=== PATIENT | female | born 1980 | race Caucasian/White ===

== ENCOUNTER → 2021-06-07 13:57 | Outpatient (CLI) | payer OTHER, SELFPAY ==
--- NOTE | 2021-06-07 13:57 | US_ITS ---
PROCEDURE: US TRANSVAGINAL CLINICAL INDICATION: pelvic pain COMPARISON: No exams were available for comparison FINDINGS: The uterus is retroverted. A 1.6 x 0.9 cm area heterogeneous echogenicity with 2 small cystic components noted along the anatomical anterior surface of the uterus consistent with a small fibroid UTERUS: 9cm x 6cmx 5cm with a combined endometrial thickness of 7.1mm LEFT OVARY: [id number] with a volume of 3.4ml. RIGHT OVARY: [id number] with a volume of 11.2ml. There are small bilateral ovarian follicles with a 2 cm follicular cyst of the right ovary. No cul-de-sac fluid apparent. IMPRESSION: Retroverted uterus with small uterine fibroid with some minimal internal cystic changes Dictated by: Elkin Chatterjee MD 06/07/2021 18:23 Elkin Chatterjee MD in [facility] 06/07/2021 18:23
--- NOTE | 2021-06-07 13:57 | US_ITS ---
PROCEDURE: US BREAST LT COMPLETE CLINICAL INDICATION: cyst of breast COMPARISON: No exams were available for comparison FINDINGS: There are no previous mammograms or ultrasounds available for comparison. At 1 o'clock there is a well-circumscribed 1 x 1 x 0.5 cm hypoechoic nodule possibly due to a complicated cyst or fibroadenoma wider than tall without calcification. At 3 o'clock there is a 1.6 x 1 by 1.4 cm slightly hypoechoic nodule with enhanced through transmission of sound well-circumscribed wider than tall and may represent a fibroadenoma. This corresponds to the palpable abnormality. No other significant anomalies evident. IMPRESSION: Palpable nodule 1 o'clock represents a 1.6 cm solid nodule which may represent a fibroadenoma. A hypoechoic nodules present at 1 o'clock and may be due to a complicated cyst. Recommend ultrasound-guided FNA of both lesions. Dictated by: Elkin Chatterjee MD 06/13/2021 14:15 Elkin Chatterjee MD in [facility] 06/13/2021 14:15
== END ==
PROVIDERS: PCP Nurse Practitioner; Visit Provider Obstetrics & Gynecology
DX: R10.2 Pelvic and perineal pain (principal); N60.09 Solitary cyst of unspecified breast
CPT/HCPCS: 76641; 76830

== ENCOUNTER → 2021-06-12 16:18 | Outpatient (CLI) | payer OTHER, SELFPAY ==
[2021-06-12 17:44] LABS: Free T4 (Free Thyroxine) 0.92 ng/dl (0.78-2.19)
[2021-06-12 18:36] LABS: Thyroid Stimulating Hormone 0.76 uIU/mL (0.465-4.68)
[2021-06-14 08:14] LABS: Thyroid Peroxidase Antibodies <8 IU/mL (0-34)
[2021-06-15 09:19] LABS: Thyroid Stimulating Immunoglob <0.10 IU/L (0.00-0.55)
[2021-06-15 18:16] LABS: Calcitonin <2.0 pg/mL (0.0-5.0)
== END ==
PROVIDERS: Visit Provider Otolaryngology
DX: E01.0 Iodine-deficiency related diffuse (endemic) goiter (principal); E04.1 Nontoxic single thyroid nodule
CPT/HCPCS: 36415; 82308; 84439; 84443; 84445; 86376

== ENCOUNTER → 2021-06-19 15:01 | Outpatient (CLI) | payer OTHER, SELFPAY ==
--- NOTE | 2021-06-19 15:01 | US_ITS ---
PROCEDURE: US THYROID CLINICAL INDICATION: enlarged thyroid COMPARISON: No exams were available for comparison FINDINGS: Right lobe: 4.51.4 x 2.1 cm. 1 x 0.6 cm hypoechoic nodule mid polar region well-circumscribed without calcifications wider than tall and may be partially cystic. 13 x 10 mm hypoechoic nodule lower pole which may be partially cystic without calcifications, wider than tall Left lobe: 4.5 x 1.2 x 2 cm. 14 x 8 by 9 mm hypoechoic nodule mid polar region. The margins are somewhat irregular wider than tall without calcifications TR level 4 less than 1.5 cm. 9 x 4 mm solid-appearing well-circumscribed mostly isoechoic nodule upper pole. Ill-defined 6 x 4 mm isoechoic nodule lower pole Isthmus: Unremarkable Additional findings: IMPRESSION: Mildly enlarged thyroid gland. Multiple nodules present as described above TR level 4 nodule on the left less than 1.5 cm. Recommend six-month sonographic follow-up. Dictated by: Elkin Chatterjee MD 06/20/2021 09:45 Elkin Chatterjee MD in [facility] 06/20/2021 09:45
== END ==
PROVIDERS: PCP Nurse Practitioner; Visit Provider Otolaryngology
DX: E01.0 Iodine-deficiency related diffuse (endemic) goiter (principal); E04.1 Nontoxic single thyroid nodule
CPT/HCPCS: 76536

== ENCOUNTER → 2021-06-21 09:36 | Outpatient (CLI) | payer OTHER, SELFPAY ==
--- NOTE | 2021-06-21 11:04 | US_ITS ---
PROCEDURE: FNA US GUIDED ADD LESION CLINICAL INDICATION: Breast nodules COMPARISON: US US BREAST LT COMPLETE from 06/07/2021 FINDINGS: There are 2 nodules within the left breast which were deemed to be suspicious on previous ultrasound. There is a nodule 1 o'clock and a nodule at 3 o'clock. Following obtaining informed consent and time-out procedure under aseptic conditions and local anesthesia with 1 percent buffered lidocaine, fine needle aspiration was performed with ultrasound guidance of the 1 o'clock nodule and then the 3 o'clock nodule. The patient tolerated the procedure well without evidence of immediate complication and left radiology suite in stable condition. Cytology left breast nodule at 1 o'clock: Negative for malignancy, compatible with fibroadenoma. Cytology left breast nodule at 3 o'clock: Negative for malignancy compatible with benign fibrocystic changes. This is discordant with the radiographic findings which appear to represent a fibroadenoma. Therefore, suggest repeat FNA with possible core biopsy with pathologist present to confirm cytology. IMPRESSION: 1 o'clock nodule negative for malignancy compatible with fibroadenoma. 3 o'clock nodule demonstrate discordant findings. Suggest repeat FNA with possible core biopsy with pathologist present to confirm cytology. Dictated by: Elkin Chatterjee MD 06/26/2021 07:42 Elkin Chatterjee MD in [facility] 06/26/2021 07:42
== END ==
PROVIDERS: PCP Nurse Practitioner; Visit Provider Obstetrics & Gynecology
DX: N63.20 Unspecified lump in the left breast, unspecified quadrant (principal)
CPT/HCPCS: 10005; 10006

== ENCOUNTER → 2021-06-28 13:25 | Outpatient (CLI) | payer OTHER, SELFPAY ==
--- NOTE | 2021-06-28 | US_ITS ---
PROCEDURE: MM DIG MAMM BI DX W/CAD Digital Breast Tomosynthesis Included US US BREAST RT COMPLETE CLINICAL INDICATION: abn us Breast nodules COMPARISON: US US BREAST RT COMPLETE from 06/28/2021 TECHNIQUE: Bilateral diagnostic mammogram with 3D tomosynthesis. CAD implemented FINDINGS: The breasts are heterogeneously dense which may obscure small masses. There are no previous exams available for comparison. In the left breast there is a well-circumscribed 1.8 x 1.7 cm nodule the in the 3 o'clock region just lateral to the nipple in the anterior 1/3. This is well-circumscribed. Recent FNA of this was negative for malignancy. This has the appearance of a fibroadenoma on previous breast ultrasound. This has a benign appearance. In the 1 o'clock region of the left breast there is an oblong nodule measuring 1.9 by 0.9 cm. Recent FNA demonstrated this to represent a fibroadenoma. No malignant appearing mass or malignant-appearing microcalcification. In the right breast there is a 2.3 x 1.6 cm nodule in the upper outer aspect at 10 o'clock. The margins are somewhat obscured likely due to overlying fibroglandular tissue. In addition, there are 2 nodules in the central retroareolar region 9 by 9 mm and 14 x 7 mm. These nodules appear fairly well-circumscribed. Right breast ultrasound: near the nipple there is a 16 x 5 mm hypoechoic nodule well-circumscribed wider than tall. Nodule 2. Near the nipple there is a 14 x 18 mm isoechoic to slightly hypoechoic nodule well-circumscribed wider than tall with enhanced through transmission of sound. IMPRESSION: There are multiple bilateral benign-appearing nodules 1 of which was recently sampled with FNA showing a fibroadenoma. 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 As opposed to sampling each nodule, 1 could perform a six-month mammographic and sonographic follow-up to confirm their stability. I no longer feel it is necessary to Re sample of the 10 o'clock nodule on the left unless patient's wishes are different. BI-RAD Category: 3 Probably Benign Finding Short Term Follow-Up FOLLOW-UP: 6M 6 Month Follow-up mammogram and ultrasound (A letter has been sent to the patient regarding results of the study.) Dictated by: Elkin Chatterjee MD 06/29/2021 12:04 Elkin Chatterjee MD in [facility] 06/29/2021 12:04
== END ==
PROVIDERS: PCP Nurse Practitioner; Visit Provider Obstetrics & Gynecology
DX: R92.8 Other abnormal and inconclusive findings on diagnostic imaging of breast (principal)
CPT/HCPCS: 76641; 77062; 77066; G0279

== ENCOUNTER → 2021-07-04 06:28 | Outpatient (CLI) | payer OTHER, SELFPAY ==
--- NOTE | 2021-07-04 06:30 | CT_ITS ---
PROCEDURE: CT SOFT TISSUE NECK WO CON CLINICAL HISTORY: neck pressure COMPARISON: No exams were available for comparison TECHNIQUE: Oral Contrast: None IV Contrast: None Axial images obtained with sagittal and coronal reformats. All CT scans at the facility use one or more dose reduction, viz: automated exposure control, ma/kV adjustment per patient size (including targeted exams where dose is matched to indication, i.e. head), or iterative reconstruction technique. FINDINGS: There is mild mucosal thickening the maxillary sinuses and ethmoid sinuses. No sinus air-fluid levels evident. The mastoid sinuses have an unremarkable appearance. Nasopharynx, oropharynx, and hypopharynx are unremarkable. The uvula is deviated toward the right. There is minimal prominence of the palatine tonsils. There are scattered mildly prominent cervical lymph nodes on both sides. The largest node is present on the left and measures 2.4 x 1 by 1 cm, level IIa. A BB is placed in the left lower neck laterally. No mass or enlarged node is present deep to this BB. Multiple hypodense nodules are present in the thyroid gland on both sides measuring up to 1.3 by 0.9 cm on the right and 1.2 x 1 cm on the left. Lung apices are clear. There is degenerative disc disease at C5-C6 with endplate hypertrophic change. There is severe right foraminal narrowing and moderate left foraminal narrowing.. IMPRESSION: 1. Mild sinus disease. 2. Scattered mildly prominent cervical lymph nodes the largest on the left at 2.4 x 1 cm level IIa. These may be reactive. Consider 3 month follow-up without and with contrast to confirm stability. 3. Degenerative changes of the cervical spine with severe right and moderate left foraminal narrowing at C5-C6 Dictated by: Elkin Chatterjee MD 07/04/2021 12:16 Elkin Chatterjee MD in [facility] 07/04/2021 12:16
== END ==
PROVIDERS: PCP Nurse Practitioner; Visit Provider Otolaryngology
DX: R13.10 Dysphagia, unspecified (principal); E04.1 Nontoxic single thyroid nodule; E04.9 Nontoxic goiter, unspecified
CPT/HCPCS: 70490

== ENCOUNTER → 2021-07-24 09:37 | Outpatient (CLI) | payer OTHER, SELFPAY ==
--- NOTE | 2021-07-24 | MM_ITS ---
PROCEDURE: US MAMMOTOME BX RT Mm clip placement right CLINICAL INDICATION: mass 10 o'clock right breast mass COMPARISON: US US BREAST RT COMPLETE from 06/28/2021 MG MM CLIP PLACEMENT RT from 07/24/2021 FINDINGS: Following time-out procedure and obtaining informed consent under aseptic conditions and local anesthesia with 1 percent buffered lidocaine and deeper anesthesia with lidocaine mixed with epinephrine, 9 gauge mammotome biopsy needle was inserted into the 10 o'clock region of the right breast by the lateral approach and directed along the dorsal aspect of the right breast mass. Multiple mammotome cores were obtained. A clip was then placed. The patient tolerated the procedure well without evidence of immediate complication. Pathology: Fibroadenoma. Negative for atypia or malignancy. Right breast clip placement MLO and CC views are performed demonstrating post biopsy changes in the upper outer right breast. The clip is placed along the posterior aspect of the nodule of concern. Other benign-appearing nodules are noted as before. IMPRESSION: Uneventful ultrasound-guided mammotome biopsy of the right breast showing benign findings. Dictated by: Elkin Chatterjee MD 07/27/2021 18:40 Elkin Chatterjee MD in [facility] 07/27/2021 18:40
== END ==
PROVIDERS: PCP Nurse Practitioner; Visit Provider Surgery
DX: N63.11 Unspecified lump in the right breast, upper outer quadrant (principal)
CPT/HCPCS: 19083; 77065; C2618

== ENCOUNTER 2021-07-25 09:02 | Emergency (ER) | payer OTHER, SELFPAY ==
[2021-07-25 09:02] VITALS: BP 137/84; PULSE 86; RESP 19; TEMP 37; O2SAT 100; BMI 32.3
[2021-07-25 10:00] LABS: UTC Strep Screen (Rapid) Negative (Negative)
--- NOTE | 2021-07-25 10:03 | HMH.EDUTC ---
[facility] Disposition Clinical Impression: URI (upper respiratory infection) Qualifiers: URI type: unspecified URI Qualified Code(s): J06.9 - Acute upper respiratory infection, unspecified Disposition: Home, Self-Care Condition on Discharge: Good Instructions: Sore Throat, DI for Sinusitis Additional Instructions: *Monitor Temp, Over the counter Motrin or Tylenol as directed/as needed Tylenol every 4 hours and Motrin every 6 hours (as long as your family doctor has told you that you can take it) for fever or pain. and straight to ER if unable to lower temp less than 101.0 after medication given *Warm salt water gargles may help to soothe the throat *Throat Lozenges *Warm fluids like tea with honey may help to soothe the throat *Sleep elevated *Humidifier/Vaporizer *Flonase 2 sprays in each nostril daily but be aware that it may take 2-3 days before you notice improvement Your throat swab was sent for culture. Those results are typically sent to your primary care. Be sure to follow up in 2-3 days with your family doctor/primary care physician if no improvement so they can review those result and treat if necessary. If you don?t have a primary care doctor, I recommend you get one but in the mean time, you will have to return to a walk in clinic Follow up IMMEDIATELY for new or worsening symptoms or no Noticeable improvement over the next 48-72 hours. 911 for difficulty breathing or swallowing Prescriptions: Fluticasone Propionate [Flonase 50mcg nasal spray 16gm] 1 spr NS DAILY #1 each Transmission Status: Pending to [facility] Cefdinir [Omnicef 300mg Capsule] 300 mg PO BID #20 cap Transmission Status: Pending to [facility] Referrals: Narcisa Medina APRN [Primary Care Provider] - As needed Time of Disposition: 10:05 Medical Decision Making - Gray Inquiry Pt receiving controlled substance: No Gray was queried for this patient: No Vital Signs: 07/25/21 09:02 Temperature 98.6 F Temperature Source Oral Pulse Rate [Left Radial] 86 Respiratory Rate 19 Blood Pressure [Right Arm] 137/84 Blood Pressure Mean [Right Arm] 101 Blood Pressure Source [Right Arm] Automatic Cuff Blood Pressure Position [Right Arm] Sitting 02 Sat by Pulse Oximetry 100 Oxygen Delivery Method Room Air - Lab Data Lab results reviewed: Yes: I reviewed the patient's lab results. Lab Results 07/25/21 09:25: Strep Scn Rapid Clinic Negative Orders (Tests/Meds): ORDERS Category Date Time Status Rapid PCR Covid and Flu A/B Stat Lab 07/25/21 09:31 Ordered Strep Screen Confirmation Stat Micro 07/25/21 09:25 Received Medical Decision Narrative: Patient rapid strep test negative however patient appears with irritated red throat with patchy like area that appears like that seen with Strep throat therefore will cover for strep throat [facility] HPI - General Stated complaint: sore throat Time Seen by Provider: 07/25/21 10:04 Mode of Arrival: Ambulatory Source of Information: Patient Limitations: No Limitations Description of Symptoms (Recalled from Triage Doc. by RN): c/o sore throat and CATHERINE HEENT Symptoms (Recalled from RN notes): Yes Resp Symptoms (Recalled from RN notes): No Skin Symptoms (Recalled from RN notes): No MS Symptoms (Recalled from RN notes): No Functional Status (Recalled from RN notes): na - History of Present Illness Provider Complaint: Patient states that he son tested positive for strep throat yesterday and she has been having sore throat also and feels scratchy and hurts when she swallows along with nasal congestion and headache State that this morning her throat was hurting worse so she came in to get checked - Related Data Home Medications Medication Instructions Recorded Confirmed cholecalciferol (vitamin D3) 1,250 1,250 mcg PO WEEKLY 06/05/21 07/10/21 mcg (50,000 unit) capsule linaclotide 290 mcg capsule 290 mcg PO DAILY 06/05/21 07/10/21 omeprazole 40 mg capsule,delaye
[2021-07-25 10:22] VITALS: BP 137/84; PULSE 86; RESP 19; TEMP 37; O2SAT 100
[2021-07-25 10:26] LABS: Coronavirus 19, PCR Not Detected (NotDetected); Influenza A, PCR Not Detected (NotDetected); Influenza B, PCR Not Detected (NotDetected)
== END 2021-07-25 10:23 | disposition home or self-care (01) ==
PROVIDERS: Emergency Provider Nurse Practitioner; PCP Nurse Practitioner
DX: J06.9 Acute upper respiratory infection, unspecified (principal); Z20.822 Contact with and (suspected) exposure to COVID-19
CPT/HCPCS: 87880; 99203; C9803; G0463; U0003; U0005

== ENCOUNTER → 2021-08-01 06:59 | Outpatient (CLI) | payer OTHER, SELFPAY ==
[2021-08-01 09:31] LABS: Urine Pregnancy, HCG Qual. Negative (Negative)
== END ==
PROVIDERS: Visit Provider Surgery
DX: Z01.812 Encounter for preprocedural laboratory examination (principal); Z11.52 Encounter for screening for COVID-19; U07.1 COVID-19; K21.9 Gastro-esophageal reflux disease without esophagitis; Z13.810 Encounter for screening for upper gastrointestinal disorder
CPT/HCPCS: 81025; C9803; U0003; U0005

== ENCOUNTER 2021-08-23 11:38 | Day surgery (SDC) | payer OTHER, SELFPAY ==
[2021-08-21 11:31] VITALS: BMI 31.4
[2021-08-22 09:50] LABS: Urine Pregnancy, HCG Qual. Negative (Negative)
[2021-08-23] VITALS (7 sets, daily range): BP systolic 101–131; BP diastolic 68–89; PULSE 80–92; RESP 18; TEMP 36.5–37.1; O2SAT 95–100
--- NOTE | 2021-08-23 12:37 | HMH.GSHP ---
HPI HPI: Patient has had some symptoms she has been having of hoarseness and tenderness from the neck to the right ear. This has been progressive and described as a pressure-like pain from the neck to the right ear with this associated hoarseness. She has been on omeprazole for some time. She has seen Dr. Adams for this. She is tried allergy medications and has tried excessive hydration. Her symptoms have persisted. She had a CT scan of the neck which showed no obvious pathology. She states that Dr. Adams was considering referral for upper endoscopy. [facility] History I have reviewed the patient's past medical history: Yes Medical History: Denies:: Cancer, Diabetes Mellitus Type 1, Diabetes Mellitus Type 2, Internal Pacemaker, MRSA, Seizures *Have you ever received a pneumonia vaccine?: No *Have you received a flu vaccine this season?: Yes Other Medical History: Reports: Other Laterality Cases: Left: Mastectomy, Bilateral: Breast Biopsy Other Surgeries: Yes: Appendectomy, Cholecystectomy, , Other. No: Pacemaker Amputation: No Fractures: No - *Social History Last grade of school completed: Advanced degree Smoking Status: Never smoker Alcohol Intake: never Alcohol Intake Frequency:: holidays/special occasions only Substance Use Type: denies use *Occupational Status:: employed Housing: house Household Members: family *Travel in the last 8 weeks: None Family Hx:: No significant family history Review of Systems - Review of Systems Review of systems:: pertinent systems reviewed and negative unless documented below Meds Home Medications Medication Instructions Recorded Confirmed Type cholecalciferol (vitamin D3) 1,250 1,250 mcg PO WEEKLY 06/05/21 07/31/21 History mcg (50,000 unit) capsule linaclotide 290 mcg capsule 290 mcg PO DAILY 06/05/21 07/31/21 History omeprazole 40 mg capsule,delayed 40 mg PO DAILY 07/10/21 07/31/21 History release Allergies Allergy/AdvReac Type Severity Reaction Status Date / Time codeine Allergy Mild rash,hives Verified 07/10/21 14:06 and itching morphine Allergy Mild hives,rash, Verified 07/10/21 14:06 itching sulfamethoxazole Allergy Verified 07/25/21 09:59 [From Bactrim] trimethoprim [From Bactrim] Allergy Verified 07/25/21 09:59 Exam Vital signs and Labs for Last 24 Hours: Temp Pulse Resp BP Pulse Ox 98.8 F 85 18 123/84 97 08/23/21 11:53 08/23/21 11:53 08/23/21 11:53 08/23/21 11:53 08/23/21 11:53 I & O for Last 24 hours: Intake & Output 08/21/21 08/22/21 08/23/21 08/24/21 11:59 11:59 11:59 11:59 Weight 195 lb - Constitutional no acute distress - *Routine HEENT Exam Head: Present: normocephalic Eye: Present: EOMI, PERRL ENT: Present: mucous membranes moist - *Routine Neck Exam Present: supple. Absent: lymphadenopathy - *Routine Respiratory Exam Present: CTA bilaterally - *Routine Cardiovascular Exam Present: RRR - *Routine Abdominal Exam Present: soft, normoactive bowel sounds. Absent: tenderness - *Routine Rectal Exam Rectal:: deferred - *Routine Genitalia Exam Genitalia:: deferred - *Routine Extremities Exam Absent: cyanosis, clubbing, edema - *Routine Skin Exam Present: warm. Absent: rash - *Routine Neurological Exam Present: alert, oriented X3 Assessment and Plan - Assessment and plan all Dx Assessment and Plan for all problems:: Plan for upper endoscopy to evaluate for possible etiology
--- NOTE | 2021-08-23 12:40 | HMH.ANESCL ---
[facility] Anesthesia Checklist - Structural Data Admitted From: Home Planned Operative Procedure/s: egd Consent for Planned Operative Procedure(s) Verified: Yes - Airway Assessment C-Spine Mobility Assessed: Yes TMJ Mobility Assessed: Yes Dentition: Good Dentition - Neurological Assessment Level of Consciousness: Awake, Alert, Appropriate - Anesthesia Plan Anesthesia Risk discussed: Yes Anesthesia Plan: Verified ASA Class: II Anesthesia Type: MAC [facility] History I have reviewed the patient's past medical history: Yes Medical History: Denies:: Cancer, Diabetes Mellitus Type 1, Diabetes Mellitus Type 2, Internal Pacemaker, MRSA, Seizures *Have you ever received a pneumonia vaccine?: No *Have you received a flu vaccine this season?: Yes Other Medical History: Reports: Other Anesthesia experience/problems:: none Laterality Cases: Left: Mastectomy, Bilateral: Breast Biopsy Other Surgeries: Yes: Appendectomy, Cholecystectomy, , Other. No: Pacemaker Amputation: No Fractures: No - *Social History Last grade of school completed: Advanced degree Smoking Status: Never smoker Alcohol Intake: never Alcohol Intake Frequency:: holidays/special occasions only Substance Use Type: denies use *Occupational Status:: employed Housing: house Household Members: family *Travel in the last 8 weeks: None Family Hx:: No significant family history
--- NOTE | 2021-08-23 12:55 | HMH.SCOPE ---
- Procedure: Date: 08/23/21 Patient Date of :: 1980 Procedure Performed:: Esophago-gastroduodenoscopy with biopsies Indications:: Patient has had some symptoms she has been having of hoarseness and tenderness from the neck to the right ear. This has been progressive and described as a pressure-like pain from the neck to the right ear with this associated hoarseness. She has been on omeprazole for some time. She has seen Dr. Adams for this. She is tried allergy medications and has tried excessive hydration. Her symptoms have persisted. She had a CT scan of the neck which showed no obvious pathology. She states that Dr. Adams was considering referral for upper endoscopy. She had tried increasing the dose of her proton pump inhibitor which did not seem to help. She is scheduled for follow-up CT scan with contrast. Performing Provider:: Rashad Hammonds MD Referring Provider:: Narcisa Medina Sedation:: MAC sedation Procedure:: Patient was taken to endoscopy procedure room. She was positioned in lateral decubitus position. Adequate intravenous sedation was achieved with anesthesia titration of propofol. Olympus endoscope was inserted via the oropharynx. Esophagus was cannulated. Overall esophagus appeared unremarkable. Gastroesophageal junction was encountered which appeared unremarkable. Stomach was cannulated and insufflated. Retroflexion revealed no evidence of any hiatal hernia. There was evidence of possible bile reflux gastritis as there was liquid bile within the stomach with some mild to moderate nonerosive gastritis. Gastric mucosal biopsy was obtained for CLOtest for H. pylori. A couple of gastric biopsies were obtained for histopathologic analysis. Pylorus was traversed. Duodenum appeared unremarkable. Endoscope was withdrawn to the distal esophagus and a couple biopsies were obtained for histopathologic analysis although there was no gross evidence of obvious reflux esophagitis. As the endoscope was withdrawn cord structures were briefly visualized and appeared grossly unremarkable although examination was somewhat suboptimal given the instrument. Endoscope was withdrawn. Findings:: Mild gastritis Recommendations:: Follow-up on histopathology. She is scheduled for follow-up CT scan with contrast. May need more thorough ENT endoscopic evaluation. Potential neurology consultation may be warranted in the future if necessary. Complications:: None immediately apparent Estimated blood obtained (mL): 2
== END 2021-08-23 13:50 | disposition home or self-care (01) ==
LOC: OUTP 11:39
PROVIDERS: PCP Nurse Practitioner; Visit Provider Surgery
PROC: 0DJ08ZZ Inspection of Upper Intestinal Tract, Via Natural or Artificial Opening Endoscopic (ICD-10-PCS; CPT 43235; principal; 2021-08-23 13:00)
DX: K29.60 Other gastritis without bleeding; Z80.8 Family history of malignant neoplasm of other organs or systems; Z88.1 Allergy status to other antibiotic agents; Z88.6 Allergy status to analgesic agent
CPT/HCPCS: 43239; 81025; 87339

== ENCOUNTER → 2021-09-29 08:48 | Outpatient (CLI) | payer OTHER, SELFPAY ==
[2021-09-29 08:53] LABS: Microscopic, Urine URINE MICROSCOPIC (MICROSCOPIC)
[2021-09-29 10:27] LABS: Basophils # 0.1 K/mm3 (0-0.2); Basophils % 1.6 % (0.1-2.0); Eosinophils # 0.3 K/mm3 (0.0-0.4); Eosinophils % 4.3 % (0.1-12.0); Hematocrit 43.3 % (37.0-47.0); Hemoglobin 14.1 g/dL (12.2-16.2); Lymphocytes # 2.4 K/mm3 (0.7-4.5); Lymphocytes % 32.9 % (10-50); Mean Corpuscular HGB Conc 32.6 g/dL (31.8-35.4); Mean Corpuscular Hemoglobin 30.5 pg (27.0-31.2); Mean Corpuscular Volume 93.5 fl (81-99); Mean Platelet Volume 9.4 fl (7.4-10.4); Monocytes # 0.4 K/mm3 (0.1-1.0); Monocytes % 5.1 % (1.7-9.3); Neutrophils # 4.1 K/mm3 (1.8-7.8); Neutrophils % 56.1 % (37.0-80.0); Platelet Count 318 K/mm3 (142-424); Red Blood Count 4.63 M/mm3 (4.20-5.40); Red Cell Distribution Width 13.4 % (11.5-17.5); White Blood Count 7.3 K/mm3 (4.8-10.8)
[2021-09-29 11:11] LABS: Hemoglobin A1C 5.8 % (4.0-6.0)
[2021-09-29 12:04] LABS: Alanine Aminotransferase 19 U/L (12-78); Albumin Level 4.5 g/dl (3.5-5.0); Albumin/Globulin Ratio 1.9 (1.1-1.8); Alkaline Phosphatase 68 U/L (38-126); Anion Gap 12.5 mEq/L (5-15); Aspartate Amino Transferase 27 U/L (14-36); Bilirubin,Total 0.3 mg/dl (0.2-1.3); Blood Urea Nitrogen 17 mg/dl (7-17); Calcium 9.7 mg/dl (8.4-10.2); Carbon Dioxide 26 mmol/L (22.0-30.0); Chloride 103 mmol/L (98-107); Cholesterol 189 mg/dl (140-200); Estimated Glomerular Filt Rate 80 ml/min (>60); GFR (African American) 97 ML/MIN (>60); Globulin 2.4 g/dL (1.3-3.2); Glucose 98 mg/dl (74-100); HDL Cholesterol 63 mg/dl (40-60); Potassium 4.5 mmoL/L (3.5-5.1); Sodium 137 mmol/L (136-145); Total Protein,Serum 6.9 g/dl (6.3-8.2); Triglycerides 43 mg/dl (30-150); VLDL Cholesterol 9 mg/dL (0-40)
[2021-09-29 12:15] LABS: Direct LDL Cholesterol 103.52 mg/dL (100-129)
[2021-09-29 12:20] LABS: Appearance,Urine CLEAR (Clear); Bilirubin,Urine Negative (Negative); Blood, Urine 3+ (Negative); Color,Urine YELLOW (Yellow); Glucose,Urine (UA) Negative (Negative); Ketones,Urine Negative (Negative); Leukocyte Esterase,Urine Negative (Negative); Nitrate,Urine Negative (Negative); PH,Urine 5.5 (5.0-8.5); Protein,Urine 1+ (Negative); Specific Gravity, Urine >= 1.030 (1.005-1.030); Urobilinogen,Urine 0.2 EU/dl (0.2)
[2021-09-29 12:35] LABS: Bacteria,Urine 2+ /lpf; WBC,Urine Occasional #/hpf (0-3)
[2021-09-29 13:09] LABS: Vitamin B12 580 pg/mL (239-931)
[2021-09-29 13:21] LABS: 25-OH Vitamin D, Total 40.7 ng/mL (30-100)
[2021-09-30 10:12] LABS: Estradiol 86.1 pg/mL (.); FSH 3.1 mIU/mL (.); LH 2.4 mIU/mL (.); Prolactin 24.4 ng/mL (4.8-23.3); Thyroid Peroxidase Antibodies 10 IU/mL (0-34); Triiodothyronine (T3) Free 3.7 pg/mL (2.0-4.4)
== END ==
PROVIDERS: PCP Nurse Practitioner; Visit Provider Nurse Practitioner
DX: R53.83 Other fatigue (principal); E66.9 Obesity, unspecified; Z68.32 Body mass index [BMI] 32.0-32.9, adult
CPT/HCPCS: 36415; 80053; 80061; 81001; 82306; 82607; 82670; 82746; 83001; 83002; 83036; 84146; 84439; 84443; 84481; 85025; 86376; 87086

== ENCOUNTER → 2021-10-10 11:29 | Outpatient (CLI) | payer OTHER, SELFPAY ==
--- NOTE | 2021-10-10 11:35 | CT_ITS ---
FINAL REPORT CLINICAL HISTORY: thyroid nodule, marked with BB, swollen lymph nodes, follow up COMPARISON: 07/04/2021 FINDINGS: Axial images of the neck soft tissue was performed by computed tomography with and without contrast. Sagittal coronal reformatted images were obtained and reviewed. This study was performed with techniques to keep radiation doses as low as reasonably achievable (ALARA). Individualized dose reduction techniques using automated exposure control or adjustment of mA and/or kV according to the patient's size were employed. On the pre-infusion images, bilateral thyroid nodules are again identified which are similar to previous. Largest nodule on the right is cystic measuring 1.2 cm. Largest nodule on the left is heterogeneous measuring 1.1 cm. These are better seen on the post-infused images. Small bilateral cervical lymph nodes are identified which are similar to or less evident than previous. No evidence of progressive adenopathy is identified. There are mild chronic changes of bilateral ethmoid and maxillary sinusitis. IMPRESSION: Bilateral thyroid nodules, similar to previous. Small bilateral cervical lymph nodes, similar to or less evident than previous. Reviewed, Interpreted and Dictated by Marty Chilel MD Transcribed by Nighat Starks Authenticated by Marty Chilel MD on 10/10/2021 02:42:37 PM [facility]
== END ==
PROVIDERS: PCP Nurse Practitioner; Visit Provider Otolaryngology
DX: E04.1 Nontoxic single thyroid nodule (principal)
CPT/HCPCS: 70492; Q9967

== ENCOUNTER → 2021-10-13 16:09 | Outpatient (CLI) | payer OTHER, SELFPAY ==
--- NOTE | 2021-10-13 16:20 | MR_ITS ---
PROCEDURE INFORMATION: Exam: MR Thoracic Spine Without Contrast Exam date and time: 10/13/2021 4:20 PM Age: 40 years old Clinical indication: Pain in thoracic spine; Additional info: Mid back pain TECHNIQUE: Imaging protocol: Multiplanar magnetic resonance images of the thoracic spine without intravenous contrast. COMPARISON: No relevant prior studies available. FINDINGS: Vertebrae: Unremarkable. Spinal cord: Normal signal. No cord compression. T1-T2: No significant disc disease. No significant spinal canal stenosis. T2-T3: No significant disc disease. No significant spinal canal stenosis. T3-T4: No significant disc disease. No significant spinal canal stenosis. T4-T5: 2 mm central disc protrusion. No significant spinal canal stenosis. T5-T6: 2 mm central/right paracentral disc protrusion. No significant spinal canal stenosis. T6-T7: 1 mm disc bulge. No significant spinal canal stenosis. T7-T8: 1 mm disc bulge. No significant spinal canal stenosis. T8-T9: No significant disc disease. No significant spinal canal stenosis. T9-T10: No significant disc disease. No significant spinal canal stenosis. T10-T11: No significant disc disease. No significant spinal canal stenosis. T11-T12: No significant disc disease. No significant spinal canal stenosis. Soft tissues: Unremarkable. IMPRESSION: 1. T4-5, T5-6: Small posterior disc protrusions. 2. T6-7, T7-8: Small disc bulges. 3. No significant canal or foraminal stenosis, intrinsic cord/conus abnormality or pathologic marrow infiltration.
== END ==
PROVIDERS: PCP Nurse Practitioner; Visit Provider Nurse Practitioner
DX: M54.6 Pain in thoracic spine (principal)
CPT/HCPCS: 72146

== ENCOUNTER 2021-11-17 15:00 | Outpatient (RCR) | payer OTHER, SELFPAY | END 2021-11-17 15:05 | disposition home or self-care (01) | LOC: PT 15:00 | PROVIDERS: Visit Provider Nurse Practitioner | DX: M54.6 Pain in thoracic spine (principal); M54.50 Low back pain, unspecified | CPT/HCPCS: 97010; 97012; 97014; 97035; 97110; 97140; 97163; G0283 ==